=== PATIENT | male | born 1935 | race Caucasian/White ===

== ENCOUNTER 2020-05-08 05:40 | Inpatient (IN) ==
[2020-05-01 12:21] LABS: Basophils % 0.4 % (0.0-0.8); Eosinophils # 0.2 10*3/uL (0.0-0.87); Eosinophils % 2.5 % (0.00-10.9); Hematocrit 39.6 VOL% (42.0-52.0); Hemoglobin 12.9 GM/DL (14.0-18.0); Immature Granulocytes % 0.4 %; Immature Granulocytes Absolute 0.04 #; Lymphocytes # 1.6 10*3/uL (1.4-4.0); Mean Corpuscular HGB Conc 32.6 GM/DL (32-36); Mean Corpuscular Volume 92.3 FL (87-102); Mean Platelet Volume 11.9 FL (9.6-12.0); Neutrophils % 70.7 % (38.7-73.9); Platelet Count 158 T/CUMM (130-400); Red Blood Count 4.29 MC/CUMM (3.8-5.5); Red Cell Distribution Width 13.5 % (9.3-17.3); White Blood Count 9.2 T/CUMM (4-12)
[2020-05-01 12:43] LABS: Albumin 3.7 G/DL (3.4-5.0); Bilirubin,Total 0.8 MG/DL (0.2-1.0); Calcium 8.6 MG/DL (8.5-10.1); Osmolality,Calculated 278.1 MOS/KG (273-304); Total Protein 7.3 G/DL (6.4-8.3)
[2020-05-08] MEDS ORDERED: ceFAZolin 1,000 MG in SYRINGE 1 EACH IV ONE (06:00)
[2020-05-08] MEDS ORDERED: FAMOTIDINE 20 MG TABLET PO ONE (06:39)
[2020-05-08] MEDS ORDERED: LIDOCAINE 2% 5 ML VIAL ONE (06:40)
[2020-05-08] MEDS ORDERED: HEPARIN/NACL 0.9% 2 UNITS/ML 500 ML IV ONE (06:41)
[2020-05-08] MEDS ORDERED: FAMOTIDINE 20 MG TABLET ONE (06:56)
[2020-05-08] MEDS ORDERED: ceFAZolin 1,000 MG VIAL ONE (06:56)
[2020-05-08] MEDS ORDERED: HEPARIN/NACL 0.9% 2 UNITS/ML 3,000 ML IV ONE (07:00)
[2020-05-08] MEDS ORDERED: LACTATED RINGERS 1,000 ML IV SCH (07:00)
[2020-05-08] MEDS ORDERED: SUGAMMADEX 200 MG/2 ML VIAL IV ONE (09:50)
[2020-05-08] MEDS ORDERED: ONDANSETRON 4 MG/2 ML VIAL IV PRN ×2 (10:41→11:30)
[2020-05-08] MEDS ORDERED: HYDROmorphone 2 MG/1 ML VIAL IV PRN (10:41)
[2020-05-08] MEDS ORDERED: NITROGLYCERIN SL 0.4 MG TABLET SL PRN (10:44)
[2020-05-08] MEDS ORDERED: MIDAZOLAM 2 MG/2 ML VIAL ONE (10:57)
[2020-05-08] MEDS ORDERED: ePHEDrine 50 MG/ML VIAL ONE (10:57)
[2020-05-08] MEDS ORDERED: propofoL 200 MG/20 ML VIAL IV ONE (10:57)
[2020-05-08] MEDS ORDERED: SEVOFLURANE 1 UNIT/15 MINUTE INH ONE (10:57)
[2020-05-08] MEDS ORDERED: fentaNYL 100 MCG/2 ML VIAL ONE (10:57)
[2020-05-08] MEDS ORDERED: SODIUM CHLORIDE 0.9% 1,000 ML IV ONE (10:58)
[2020-05-08] MEDS ORDERED: ROCURONIUM 100 MG/10 ML VIAL IV ONE (10:58)
[2020-05-08] MEDS: HYDROmorphone 2 MG/1 ML VIAL IV PRN ×2 (10:58→11:08)
[2020-05-08] MEDS ORDERED: ETOMIDATE 40 MG/20 ML VIAL IV ONE (10:58)
[2020-05-08] MEDS ORDERED: SUCCINYLCHOLINE 200 MG/10 ML VIAL ONE (10:58)
[2020-05-08] MEDS ORDERED: KETOROLAC 30 MG/1 ML VIAL ONE (11:19)
[2020-05-08] MEDS ORDERED: KETOROLAC 30 MG/1 ML VIAL IV ONE (11:30)
[2020-05-08 12:01] LABS: Hematocrit 35.1 VOL% (42.0-52.0); Hemoglobin 11.3 GM/DL (14.0-18.0)
[2020-05-08 14:17] LABS: Calcium 7.8 MG/DL (8.5-10.1)
[2020-05-08] MEDS: oxyCODONE/ACETAMINOPHEN 5-325 MG TABLET PO PRN ×2 (15:18→21:30)
[2020-05-08] MEDS: LACTATED RINGERS 1,000 ML IV SCH (18:27)
[2020-05-08] MEDS ORDERED: TAMSULOSIN 0.4 MG CAPSULE PO SCH (21:00)
[2020-05-09] MEDS: LACTATED RINGERS 1,000 ML IV SCH ×2 (01:58→12:57)
[2020-05-09 06:01] LABS: Hematocrit 36.6 VOL% (42.0-52.0); Hemoglobin 11.9 GM/DL (14.0-18.0)
[2020-05-09 06:16] LABS: Calcium 8.2 MG/DL (8.5-10.1); Osmolality,Calculated 283.1 MOS/KG (273-304)
[2020-05-09] MEDS ORDERED: lisinopriL 20 MG TABLET PO SCH (09:00)
[2020-05-09] MEDS ORDERED: ROSUVASTATIN 20 MG TABLET PO SCH (09:00)
[2020-05-09] MEDS ORDERED: amLODIPine 10 MG TABLET PO SCH (09:00)
[2020-05-09] MEDS ORDERED: CALCIUM (CARBONATE)/VITAMIN D 600 MG-400 UNIT TABLET PO SCH (09:00)
[2020-05-09] MEDS ORDERED: ASPIRIN EC 81 MG TABLET PO SCH (09:00)
[2020-05-09] MEDS ORDERED: MELOXICAM 7.5 MG TABLET PO SCH (09:00)
[2020-05-09 11:15] VITALS: BP 134/67
== END 2020-05-09 14:15 | disposition home or self-care (01) | DRG 269 ==
LOC: N.SDSINP 05:40 → N.4E 12:18
PROVIDERS: ADMIT Surgery; ATTEND Surgery
PROC: IRERAAA (2020-05-08 08:02)

== ENCOUNTER 2021-07-02 15:19 | Inpatient (IN) ==
[2021-07-02 18:41] LABS: Basophils % 0.3 % (0.0-0.8); Eosinophils # 0.1 10*3/uL (0.0-0.87); Hematocrit 37.8 VOL% (42.0-52.0); Hemoglobin 12.3 GM/DL (14.0-18.0); Immature Granulocytes % 0.4 %; Immature Granulocytes Absolute 0.04 #; Lymphocytes # 1.4 10*3/uL (1.4-4.0); Lymphocytes % 15.6 % (21.2-54.2); Mean Corpuscular HGB Conc 32.5 GM/DL (32-36); Mean Corpuscular Volume 87.1 FL (87-102); Mean Platelet Volume 10.4 FL (9.6-12.0); Monocytes % 10.2 % (1.7-12.7); Neutrophils % 72.5 % (38.7-73.9); Platelet Count 235 T/CUMM (130-400); Red Blood Count 4.34 MC/CUMM (3.8-5.5); Red Cell Distribution Width 13.5 % (9.3-17.3)
[2021-07-02 19:02] LABS: Albumin 3.1 G/DL (3.4-5.0); Bilirubin,Total 0.6 MG/DL (0.20-1.00); Calcium 8.6 MG/DL (8.5-10.1); Potassium 3.3 MMOL/L (3.5-5.1); Total Protein 7.5 G/DL (6.4-8.2)
[2021-07-02 19:25] LABS: PT Patient Result 11.3 SECS (10.5-12.0); Partial Thromboplastin Time 31.3 SECS (23.8-32.1)
[2021-07-03] MEDS ORDERED: ETOMIDATE 40 MG/20 ML VIAL IV ONE (09:41)
[2021-07-03] MEDS ORDERED: LIDOCAINE 2% 5 ML VIAL ONE (09:41)
[2021-07-03] MEDS ORDERED: DEXMEDETOMIDINE 200 MCG/2 ML VIAL ONE ×2 (09:41→09:42)
[2021-07-03] MEDS ORDERED: ROPIVACAINE 0.5% 30 ML VIAL ONE (09:51)
[2021-07-03] MEDS ORDERED: ePHEDrine 50 MG/ML VIAL ONE (10:17)
[2021-07-03] MEDS ORDERED: KETAMINE 500 MG/10 ML VIAL ONE (10:25)
[2021-07-03] MEDS ORDERED: fentaNYL 100 MCG/2 ML VIAL ONE (10:50)
[2021-07-03] MEDS ORDERED: GLUCAGON 1 MG VIAL IM PRN (11:25)
[2021-07-03] MEDS ORDERED: DEXTROSE 50% 25 GM/50 ML SYRINGE IV PRN (11:25)
[2021-07-03] MEDS ORDERED: ONDANSETRON 4 MG/2 ML VIAL IV PRN (11:25)
[2021-07-03] MEDS: INSULIN REGULAR 100 UNIT/ML SUBCUT SCH ×3 (11:30→22:48)
[2021-07-03] MEDS: fentaNYL 2 MCG/ROPIV 0.2% EPID 100 ML EPIDURAL SCH (11:51)
[2021-07-03] MEDS: LACTATED RINGERS 1,000 ML IV SCH ×2 (11:57→21:58)
[2021-07-03] MEDS: ALBUTEROL/IPRATROPIUM 3 ML NEB RESP TX SCH ×2 (14:44→19:40)
[2021-07-03] MEDS ORDERED: TUBERCULIN SKIN TEST 0.1 ML SYRINGE INTRADERM ONE (15:00)
[2021-07-03] MEDS: oxyCODONE/ACETAMINOPHEN 5-325 MG TABLET PO PRN (21:58)
[2021-07-03] MEDS: INSULIN GLARGINE 100 UNIT/ML SUBCUT SCH (21:58)
[2021-07-04] MEDS: fentaNYL 2 MCG/ROPIV 0.2% EPID 100 ML EPIDURAL SCH ×2 (00:24→13:44)
[2021-07-04] MEDS: ALBUTEROL/IPRATROPIUM 3 ML NEB RESP TX SCH ×4 (00:32→20:10)
[2021-07-04 05:31] LABS: Basophils # 0.1 10*3/uL (0.0-0.2); Basophils % 0.7 % (0.0-0.8); Eosinophils # 0.2 10*3/uL (0.0-0.87); Eosinophils % 1.7 % (0.00-10.9); Hematocrit 35.3 VOL% (42.0-52.0); Immature Granulocytes % 0.3 %; Immature Granulocytes Absolute 0.03 #; Lymphocytes % 11.6 % (21.2-54.2); Mean Corpuscular HGB Conc 31.2 GM/DL (32-36); Mean Corpuscular Volume 91.5 FL (87-102); Mean Platelet Volume 11.1 FL (9.6-12.0); Monocytes % 10.2 % (1.7-12.7); Neutrophils % 75.5 % (38.7-73.9); Platelet Count 227 T/CUMM (130-400); Red Blood Count 3.86 MC/CUMM (3.8-5.5); Red Cell Distribution Width 13.7 % (9.3-17.3); White Blood Count 8.7 T/CUMM (4-12)
[2021-07-04 05:46] LABS: Calcium 8.5 MG/DL (8.5-10.1); Osmolality,Calculated 275.5 MOS/KG (273-304); Potassium 3.6 MMOL/L (3.5-5.1)
[2021-07-04] MEDS: oxyCODONE/ACETAMINOPHEN 5-325 MG TABLET PO PRN ×2 (07:10→13:46)
[2021-07-04] MEDS: INSULIN REGULAR 100 UNIT/ML SUBCUT SCH ×4 (08:11→23:49)
[2021-07-04] MEDS: PANTOPRAZOLE 40 MG TABLET PO SCH (09:24)
[2021-07-04] MEDS: lisinopriL 20 MG TABLET PO SCH (09:24)
[2021-07-04] MEDS: amLODIPine 10 MG TABLET PO SCH (09:24)
[2021-07-04] MEDS: CALCIUM (CARBONATE)/VITAMIN D 600 MG-400 UNIT TABLET PO SCH (09:24)
[2021-07-04] MEDS: ASPIRIN EC 81 MG TABLET PO SCH (09:24)
[2021-07-04] MEDS: TAMSULOSIN 0.4 MG CAPSULE PO SCH (09:24)
[2021-07-04] MEDS: LACTATED RINGERS 1,000 ML IV SCH ×2 (09:25→17:03)
[2021-07-04] MEDS: KETOROLAC 10 MG TABLET PO PRN (11:29)
[2021-07-04] MEDS: INSULIN GLARGINE 100 UNIT/ML SUBCUT SCH (22:40)
[2021-07-05] MEDS: fentaNYL 2 MCG/ROPIV 0.2% EPID 100 ML EPIDURAL SCH (01:11)
[2021-07-05] MEDS: ALBUTEROL/IPRATROPIUM 3 ML NEB RESP TX SCH ×4 (01:13→20:13)
[2021-07-05] MEDS: oxyCODONE/ACETAMINOPHEN 5-325 MG TABLET PO PRN (04:52)
[2021-07-05] MEDS: KETOROLAC 10 MG TABLET PO PRN (07:23)
[2021-07-05] MEDS: INSULIN REGULAR 100 UNIT/ML SUBCUT SCH ×4 (09:26→21:01)
[2021-07-05] MEDS: lisinopriL 20 MG TABLET PO SCH (09:30)
[2021-07-05] MEDS: CALCIUM (CARBONATE)/VITAMIN D 600 MG-400 UNIT TABLET PO SCH ×2 (09:31→09:35)
[2021-07-05] MEDS: PANTOPRAZOLE 40 MG TABLET PO SCH (09:31)
[2021-07-05] MEDS: amLODIPine 10 MG TABLET PO SCH (09:31)
[2021-07-05] MEDS: TAMSULOSIN 0.4 MG CAPSULE PO SCH ×2 (09:31→09:35)
[2021-07-05] MEDS: ASPIRIN EC 81 MG TABLET PO SCH (09:31)
[2021-07-05] MEDS: LACTATED RINGERS 1,000 ML IV SCH (10:42)
[2021-07-05] MEDS: INSULIN GLARGINE 100 UNIT/ML SUBCUT SCH (21:10)
[2021-07-06] MEDS: ALBUTEROL/IPRATROPIUM 3 ML NEB RESP TX SCH ×4 (00:56→19:28)
[2021-07-06] MEDS: INSULIN REGULAR 100 UNIT/ML SUBCUT SCH ×4 (07:39→20:03)
[2021-07-06] MEDS: TAMSULOSIN 0.4 MG CAPSULE PO SCH (08:04)
[2021-07-06] MEDS: amLODIPine 10 MG TABLET PO SCH (08:04)
[2021-07-06] MEDS: ASPIRIN EC 81 MG TABLET PO SCH (08:04)
[2021-07-06] MEDS: lisinopriL 20 MG TABLET PO SCH (08:04)
[2021-07-06] MEDS: CALCIUM (CARBONATE)/VITAMIN D 600 MG-400 UNIT TABLET PO SCH (09:16)
[2021-07-06] MEDS: PANTOPRAZOLE 40 MG TABLET PO SCH (09:16)
[2021-07-06] MEDS: INSULIN GLARGINE 100 UNIT/ML SUBCUT SCH (20:59)
[2021-07-07] MEDS: ALBUTEROL/IPRATROPIUM 3 ML NEB RESP TX SCH ×2 (01:22→07:21)
[2021-07-07] MEDS: PANTOPRAZOLE 40 MG TABLET PO SCH (10:09)
[2021-07-07] MEDS: ASPIRIN EC 81 MG TABLET PO SCH (10:09)
[2021-07-07] MEDS: TAMSULOSIN 0.4 MG CAPSULE PO SCH (10:09)
[2021-07-07] MEDS: amLODIPine 10 MG TABLET PO SCH (10:09)
[2021-07-07] MEDS: lisinopriL 20 MG TABLET PO SCH (10:09)
[2021-07-07] MEDS: CALCIUM (CARBONATE)/VITAMIN D 600 MG-400 UNIT TABLET PO SCH (10:15)
[2021-07-07] MEDS: INSULIN REGULAR 100 UNIT/ML SUBCUT SCH (11:19)
[2021-07-07 11:51] VITALS: BP 134/57
== END 2021-07-07 12:03 | DRG 240 ==
LOC: N.3E 16:57
PROVIDERS: ADMIT Surgery; ATTEND Surgery